=== PATIENT | female | born 1950 | race Caucasian/White ===

== ENCOUNTER 2024-09-20 11:02 | Emergency (ER) | payer MEDICARE ==
[2024-09-20 11:09] VITALS: TEMP 98.6
[2024-09-20 12:13] LABS: Basophils % (A) 0 %; Eosinophils # (A) 0.2 k/uL (0-0.7); Eosinophils % (A) 5 %; HCT 40.1 % (34.0-46.0); HGB 12.7 gm/dL (11.4-16.0); Hypochromasia Slight; Lymphocytes # (A) 0.8 k/uL (1.0-4.8); Lymphocytes % (A) 24 %; MCH 31.2 pg (25.0-35.0); MCHC 31.6 g/dL (31.0-37.0); Mean Platelet Volume 8.2; Monocytes # (A) 0.3 k/uL (0-1.0); Monocytes % (A) 9 %; Neutrophils # (A) 2.1 k/uL (1.3-7.7); Neutrophils % (A) 60 %; Platelet Count 121 k/uL (150-450); RBC 4.05 m/uL (3.80-5.40); RDW 13.9 % (11.5-15.5); WBC 3.5 k/uL (3.8-10.6)
--- NOTE | 2024-09-20 12:30 | XR ---
EXAMINATION TYPE: XR chest 2V DATE OF EXAM: 09/20/2024 12:26 PM COMPARISON: None CLINICAL INDICATION: Female, 74 years old with history of overdose; altered mental status TECHNIQUE: XR chest 2V Frontal and lateral views of the chest. FINDINGS: Lungs/Pleura: There is no evidence of pleural effusion, focal consolidation, or pneumothorax. Pulmonary vascularity: Unremarkable. Heart/mediastinum: Cardiomediastinal silhouette is unremarkable. Two lead cardiac conduction device o verlying the left hemithorax with lead tips projecting over the right ventricle and right atrium. Musculoskeletal: No acute osseous pathology. IMPRESSION: No acute cardiopulmonary disease/process. [facility], , 09/20/2024 12:28 PM
[2024-09-20 12:31] LABS: ALT 18 U/L (4-34); AST 28 U/L (14-36); Acetaminophen <10.0 ug/mL; African American GFR (CKD) 38 (>60 ml/min/1.73 sqM); Albumin 3.6 g/dL (3.5-5.0); Alcohol <10 mg/dL; Alkaline Phosphatase 97 U/L (38-126); Anion Gap 7 mmol/L; Blood Urea Nitrogen 42 mg/dL (7-17); Calcium 8.9 mg/dL (8.4-10.2); Carbon Dioxide 24 mmol/L (22-30); Chloride 110 mmol/L (98-107); Glucose 124 mg/dL (74-99); Non-African American GFR(CKD) 33 (>60 ml/min/1.73 sqM); Potassium 4.5 mmol/L (3.5-5.1); Salicylate <1.0 mg/dL; Sodium 141 mmol/L (137-145); Total Bilirubin 0.3 mg/dL (0.2-1.3); Total Protein 6.2 g/dL (6.3-8.2)
--- NOTE | 2024-09-20 13:39 | ED ---
Overdose HPI - General Source: patient, EMS, RN notes reviewed Mode of arrival: EMS Limitations: no limitations - History of Present Illness MD Complaint: accidental overdose Onset/Timin -: hour(s) Context: Accidental Overdose: other (Attempting to relieve pain) Treatments Prior to Arrival: narcan <Morgan Kee - Last Filed: 09/20/24 13:35> <Merritt Reyes - Last Filed: 09/20/24 15:17> - General Chief Complaint: Overdose Stated Complaint: Accidental overdose Time Seen by Provider: 09/20/24 11:16 - History of Present Illness Initial Comments: Quick note: This is a 74-year-old female with history of pacemaker and 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 Family states patient took x 2 10 mg tablets of oxycodone due to increasing pain of "electrical shocks" near right ear for the past 3 days. Patient states she is feeling better after being given 0.5 mg Narcan by EMS prior to arrival. (Morgan Kee) Dictation was produced using [employer] dictation software. please excuse any grammatical, word or spelling errors. Chief Complaint: 74-year-old female presents emergency department with oxycodone overdose History of Present Illness: Patient 74-year-old female past medical history of transplant, neuropathy. States that she accidentally took 2 of her OxyContin pills that were leftover from years ago for her shoulder issue. States that she took this medication became unresponsive somnolent for some time. EMS was called and was patient was given Narcan with improvement of mentation. Patient denies any complaints at the bedside. She has been having these shooting pains to her right ear intermittently for several days. She does take Lyrica. The ROS documented in this emergency department record has been reviewed and confirmed by me. Those systems with pertinent positive or negative responses have been documented in the HPI. All other systems are other negative and/or noncontributory. (Merritt Reyes) - Related Data Allergies Allergy/AdvReac Type Severity Reaction Status Date / Time ibuprofen [From Motrin] AdvReac Unknown Verified 09/20/24 11:09 morphine AdvReac Nausea Verified 09/20/24 11:09 Review of Systems ROS Other: All systems not noted in ROS Statement are negative. <Morgan Kee - Last Filed: 09/20/24 13:35> ROS Other: All systems not noted in ROS Statement are negative. <Merritt Reyes - Last Filed: 09/20/24 15:17> ROS Statement: Those systems with pertinent positive or pertinent negative responses have been documented in the HPI. 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 Patient seated in wheel chair Head: Normocephalic, atraumatic Eyes: PERRLA, EOMI ENT: Airway patent Chest: Nonlabored breathing Skin: No visual rash, normal skin tone Neuro: Alert and oriented 3 Musculoskeletal: No gross abnormalities (Morgan Kee) PHYSICAL EXAM: General Impression: Alert and oriented x3, not in acute distress HEENT: Normocephalic atraumatic, extra-ocular movements intact, pupils equal and reactive to light bilaterally, mucous membranes moist. Cardiovascular: Heart regular rate and rhythm Chest: Able to complete full sentences, no retractions, no tachypnea Abdomen: abdomen soft, non-tender, non-distended, no organomegaly Musculoskeletal: Pulses present and equal in all extremities, no peripheral edema Motor: no focal deficits noted Neurological: CN II-XII grossly intact, no focal motor or sensory deficits noted Skin: Intact with no visualized rashes Psych: Normal affect and mood (Merritt Reyes) Course Vital Signs 09/20/24 11:06 Temperature 98.6 F Pulse Rate 86 Respiratory 18 Rate Blood Pressure 183/91 O2 Sat by Pulse 98 Oximetry Medical Decision Making - Lab Data Result diagrams: 09/20/24 12:02 09/20/24 12:02 <Morgan Kee - Last Filed: 09/20/24 13:35> - Lab Data Result diagrams: 09/20/24 12:02 09/20/24 12:02 <Merritt Reyes - Last Filed: 09/20/24 15:17> - Medical Decision Making I completed the quick note portion of this chart signed JAKE Nelson (Morgan Kee) Was pt. sent in by a medical professional or institution (LYNNETTE Ann, [employer], urgent care, hospital, or correction...) When possible be specific @ -No Did you speak to anyone other than the patient for history (EMS, parent, family, police, friend...)? What history was obtained from this source @ -Mr. Obtained from EMS along with daughter at the bedside Did you review nursing and triage notes (agree or disagree)? Why? @ -I reviewed and agree with nursing and triage notes Were old charts reviewed (outside hosp., previous admission, EMS record, old EKG, old radiological studies, urgent care reports/EKG's, correction records)? Report findings @ -No old charts were reviewed Differential Diagnosis (chest pain, altered mental status, abdominal pain women, abdominal pain men, vaginal bleeding, musculoskeletal, weakness, fever, dyspnea, syncope, headache, dizziness, GI bleed, back pain, seizure, CVA, palpatations, mental health)? @ -Noncardiogenic pulmonary edema, suicidal overdose, accidental overdose EKG interpreted by me (3pts min.). @ -None done X-rays interpreted by me (1pt min.). @ -Chest x-ray is nonacute CT interpreted by me (1pt min.). @ -None done U/S interpreted by me (1pt. min.). @ -None done What testing was considered but not performed or refused? (CT, X-rays, U/S, labs)? Why? @ -None What meds were considered but not given or refused? Why? @ -None Was smoking cessation discussed for >3mins.? @ -No Were there social determinants of health that impacted care today? How? (Homelessness, low income, unemployed, alcoholism, drug addiction, transportation, low edu. Level, literacy, decrease access to med. care, senior living, rehab)? @ -No Was there de-escalation of care discussed even if they declined (Discuss DNR or withdrawal of care, Hospice)? DNR status @ -No What co-morbidities impacted this encounter? (DM, HTN, Smoking, COPD, CAD, Cancer, CVA, ARF, Chemo, Hep., AIDS, mental health diagnosis, sleep apnea, morbid obesity)? @ -Transplant history Was patient admitted / discharged? Hospital course, mention meds given and route, prescriptions, significant lab abnormalities, going to OR and other pertinent info. @ -74-year-old female presents emergency department for opiate overdose. She took 2 OxyContin's leftover from prescription several years ago. Vital signs stable. She is given Narcan prehospital which improved her mentation. Patient presented emergency department for 4 hours. Labs are unremarkable. Patient asymptomatic at the bedside on evaluation at 3:15 PM. Patient stable for discharge advised close follow-up with primary care doctor. Patient not suicidal or psychotic Did you discuss the management of the patient with other professionals (professionals i.e. , PA, [employer], lab, RT, psych nurse, forensic social worker, chemical project engineer, teacher, family preservation officer, case packer and sealer)? Give summary @ -No Was critical care preformed (if so, how long)? @ -No Undiagnosed new problem with uncertain prognosis? @ -No Drug Therapy requiring intensive monitoring for toxicity (Heparin, Nitro, Insul in, Cardizem)? @ -No Were any procedures done? @ -No Diagnosis/symptom? Acute, or Chronic, or Acute on Chronic? Uncomplicated (without systemic symptoms) or Complicated (systemic symptoms)? @ -Accidental opiate overdose Side effects of treatment? @ -No Exacerbation, Progression, or Severe Exacerbation? @ -No Poses a threat to life or bodily function? How? (Chest pain, [place], [place], pneumonia, PE, COPD, DKA, ARF, appy, cholecystitis, CVA, Diverticulitis, Homicidal, Suicidal, threat to staff... and all critical care pts) @ -yes (Merritt Reyes) - Lab Data Lab Results 09/20/24 09/20/24 09/20/24 Range/Units 12:02 12:02 12:02 WBC 3.5 L (3.8-10.6) k/uL RBC 4.05 (3.80-5.40) m/uL Hgb 12.7 (11.4-16.0) gm/dL Hct 40.1 (34.0-46.0) % MCV 99.0 (80.0-100.0) fL MCH 31.2 (25.0-35.0) pg MCHC 31.6 (31.0-37.0) g/dL RDW 13.9 (11.5-15.5) % Plt Count 121 L (150-450) k/uL MPV 8.2 Neutrophils % 60 % Lymphocytes % 24 % Monocytes % 9 % Eosinophils % 5 % Basophils % 0 % Neutrophils # 2.1 (1.3-7.7) k/uL Lymphocytes # 0.8 L (1.0-4.8) k/uL Monocytes # 0.3 (0-1.0) k/uL Eosinophils # 0.2 (0-0.7) k/uL Basophils # 0.0 (0-0.2) k/uL Hypochromasia Slight Sodium 141 (137-145) mmol/L Potassium 4.5 (3.5-5.1) mmol/L Chloride 110 H (98-107) mmol/L Carbon Dioxide 24 (22-30) mmol/L Anion Gap 7 mmol/L BUN 42 H (7-17) mg/dL Creatinine 1.55 H (0.52-1.04) mg/dL Est GFR (CKD-EPI)AfAm 38 (>60 ml/min/1.73 sqM) Est GFR (CKD-EPI)NonAf 33 (>60 ml/min/1.73 sqM) Glucose 124 H (74-99) mg/dL Plasma Lactic Acid Andreas 1.0 (0.7-2.0) mmol/L Calcium 8.9 (8.4-10.2) mg/dL Total Bilirubin 0.3 (0.2-1.3) mg/dL AST 28 (14-36) U/L ALT 18 (4-34) U/L Alkaline Phosphatase 97 (38-126) U/L Total Protein 6.2 L (6.3-8.2) g/dL Albumin 3.6 (3.5-5.0) g/dL Salicylates <1.0 mg/dL Acetaminophen <10.0 ug/mL Serum Alcohol <10 mg/dL Disposition <Morgan Kee Filed: 09/20/24 13:35> Is patient prescribed a controlled substance at d/c from ED?: No Time of Disposition: 15:17 <Merritt Reyes - Last Filed: 09/20/24 15:17> Clinical Impression: Opiate overdose Disposition: HOME SELF-CARE Condition: Good Instructions (If sedation given, give patient instructions): Adult Overdose (ED) Referrals: Nonstaff,Physician [Primary Care Provider] - 1-2 days
[2024-09-20 16:19] LABS: Amphetamine Screen,Urine Not Detected (NotDetected); Barbiturate Screen,Urine Not Detected (NotDetected); Benzodiazepines Screen,Urine Not Detected (NotDetected); Cocaine Screen,Urine Not Detected (NotDetected); Methadone Screen, Urine Not Detected (NotDetected); Opiate Screen,Urine Detected (NotDetected); Oxycodone Screen, Urine Detected (NotDetected); Phencyclidine Screen,Urine Not Detected (NotDetected); Tricyclic Antidepressant,Urine Not Detected (NotDetected); Urn Cannabinoid Scrn Not Detected (NotDetected)
[2024-09-20 16:45] VITALS: BP 147/84; PULSE 72; RESP 16
== END 2024-09-20 16:47 | disposition home or self-care (01) ==
LOC: EC 11:02
DX: T40.2X1A Poisoning by other opioids, accidental (unintentional), initial encounter (principal); Z94.0 Kidney transplant status; Z88.1 Allergy status to other antibiotic agents; Z88.6 Allergy status to analgesic agent
CPT/HCPCS: 36415; 93005; 80053; 83605; 85025; 80306; 80143; 80179; 71046; 99284; G0480; 80320